=== PATIENT | male | born 1985 ===

== ENCOUNTER 2018-05-10 12:43 | Emergency (ER) | payer BC ==
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
[2018-05-10 13:34] LABS: CHLORIDE,CL 106 mmol/L (98-107); SODIUM,NA 141 mmol/L (136-148)
--- NOTE | 2018-05-10 14:41 | CR ---
INDICATION: Neck pain. TECHNIQUE: Two-view cervical spine. FINDINGS: No evidence of fracture or dislocation. No bone or soft tissue abnormalities. IMPRESSION: Negative radiographic examination two-view study cervical spine. Dictated by Tyshawn Whitley MD @ May 10 2018 2:40PM Signed by Dr. Tyshawn Whitley @ May 10 2018 2:41PM
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
== END 2018-05-10 14:55 | disposition home or self-care (01) ==
LOC: MW.ED 12:43
DX: M62.838 Other muscle spasm (principal); V49.20XA Unspecified car occupant injured in collision with unspecified motor vehicles in nontraffic accident, initial encounter
CPT/HCPCS: 36415; 72040; 72040-26; 72100; 72100-26; 73600-26-RT; 73600-RT; 80053; 81001; 85025; 99284